=== PATIENT | male | born 1985 | race Caucasian/White ===

== ENCOUNTER 2021-03-06 14:17 | Outpatient (CLI) | payer BC, SELFPAY ==
--- NOTE | ~2021-03-06 | XR_ITS ---
XR lumbar spine 2-3V 03/06/2021 14:37 Indication: Low back pain. Patient fell off horse. Procedure: 3 views of the lumbar spine Comparison: No prior studies for comparison. Findings: There is grade 1 spondylolisthesis at L5-S1 secondary to bilateral spondylolysis. No acute fracture or traumatic malalignment. Vertebral body heights are maintained. No significant disc narrow ing. Sacral foramen are symmetric. Pedicles intact. Impression: 1: Grade 1 spondylolisthesis at L5-S1 secondary to spondylolysis. Reviewed, dictated and finalized at location A. Impression: 1: Grade 1 spondylolisthesis at L5-S1 secondary to spondylolysis.
== END 2021-03-06 14:18 | disposition home or self-care (01) ==
LOC: CHSIMG 14:19
PROVIDERS: PCP Nurse Practitioner Family; Visit Provider Nurse Practitioner Family
DX: M54.9 Dorsalgia, unspecified (principal)
CPT/HCPCS: 72100

== ENCOUNTER 2021-03-13 16:54 | Outpatient (RCR) | payer BC, SELFPAY ==
--- NOTE | 2021-03-13 18:05 | PTOPEVAL ---
Thank you for referring Eliot Spann to [facility].? The patient is scheduled to be seen for therapy? ____x/week for ___ weeks. Please review, sign, date and return this plan of care RON. I agree with and certify that the following plan of care is medically necessary. Referring Physician Date Admitting Provider: Attending Provider: Astrid Chaudhary NP Referring Provider: CONNIE Outpatient Evaluation Start: 03/13/21 17:01 Freq: Status: Active Protocol: Document 03/13/21 17:02 ACR (Rec: 03/13/21 18:05 ACR [id number]) Therapy Assessment Status Assessment Status Assessment Status Evaluation Evaluation Information Problem Diagnosis low back pain Onset 02/25/21 Subjective Information Patient states that he fell Query Text:As Reported By Patient/ off of the horse by the saddle Family coming off and he fell onto the back. Patient states that he has difficulty bending, lifting, and twisting. 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 Patient states that he walks slower than he used to, so if he walks or stands for a period of time his back is pretty sore. He also has difficulty with stairs. Patient states that the pain wakes him up at night, but if he takes a muscle relaxer, it is better. He states he is on light duty for work which means he is not lifting anything. Patient states that his goal for therapy is to decrease pain. 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
--- NOTE | 2021-04-10 08:00 | PCPTNOTE ---
Patient called on 04/04/21 and stated he is feeling great and would like to be discharged at this time. Please refer to recent treatment note for discharge status. Thank you, DEL PenaT
== END 2021-03-29 10:36 | disposition home or self-care (01) ==
LOC: CHSPT 16:54
PROVIDERS: PCP Nurse Practitioner Family; Visit Provider Nurse Practitioner Family
DX: M43.10 Spondylolisthesis, site unspecified (principal); M47.816 Spondylosis without myelopathy or radiculopathy, lumbar region
CPT/HCPCS: 97014; 97110; 97161; G0283

== ENCOUNTER 2025-03-31 18:22 | Emergency (ER) | payer BC, SELFPAY ==
--- NOTE | ~2025-03-31 | XR_ITS ---
XR ankle RT min 3V 03/31/2025 18:44 INDICATION: Right ankle pain PROCEDURE: 4 views right ankle COMPARISON: No prior studies for comparison. FINDINGS: Fracture, dislocation or subluxation is not identified. Ankle mortise intact. The soft tissues appear within normal limits. No foreign bodies are identified. IMPRESSION: 1: NO ACUTE BONE OR JOINT ABNORMALITY IDENTIFIED. Reviewed, dictated and finalized at location A.
[2025-03-31 18:23] VITALS: BP 127/91; PULSE 81; RESP 16; TEMP 36.7; O2SAT 95
--- OUTSIDE RECORDS SUMMARY | 2025-03-31 18:25 | XMS_ITS | Clinical Summary ---
Author Organization [facility] Healthcare Address [address] [place] [address] Care Team Providers Care Equity Analyst Name Role Phone Unavailable Primary Care Provider Unavailabl e Allergies No known active allergies Medications ibuprofen (ibuprofen) 200 mg tab/cap Take 200 mg by mouth every 6 (six) hours as needed for pain Active PARoxetine CR (PAXIL-CR) 12.5 mg 24 hr tabletIndicatio ns:Mild episode of recurrent major depressive disorder,Irrita bility and anger Take 1 tablet (12.5 mg total) by mouth every morning 90 tablet 9 Active Additional Information Patient not taking.Reported on 09/09/2019 Active Problems Problem Noted Date Diagnosed Date Irritability and anger 07/30/2019 Assessment & Plan (07/30/2019 5:14 PM [employer]): Encouraged psychotherapy; Patient is aware that he has benefits as his daughter has received counseling. He is currently opposed to counseling for himself d/t a negative experience as a child. New start on Paxil CR. Go to nearest ER if you believe you will be a harm to yourself or someone else. Anxiety associated with depression 07/30/2019 Assessment & Plan (09/09/2019 10:32 AM [employer]ER): Explained to patient that depression and anxiety go together. Discussed how benzodiazepines would only cover the problem. I do not think that medical marijuana would help his situation either, however, patient is adamant that medical marijuana is what he wants. I explained that this office does not do paperwork for medical marijuana. Pt states that he is done with this office but understood but would not be back. Assessment & Plan (07/30/2019 5:14 PM [employer]ER): Encouraged psychotherapy; Patient is aware that he has benefits as his daughter has received counseling. He is currently opposed to counseling for himself d/t a negative experience as a child. New start on Paxil CR. Go to nearest ER if you believe you will be a harm to yourself or someone else. Hypertriglyceridemia 11/25/2018 Chronic pain of right knee 11/12/2017 Class 2 obesity due to exces s calories without serious comorbidity with body mass index (BMI) of 35.0 to 35.9 in adult 11/12/2017 Assessment & Plan (07/30/2019 5:15 PM [employer]): Worsening. Encouraged patient to decrease weight, increase daily exercise, and modify diet. Assessment & Plan (06/04/2019 11:14 AM CDT): Healthy, low carbohydrate diet and exercise for 150min/week recommended Assessment & Plan (11/25/2018 4:48 PM CDT): Obesity is newly identified. Discussed the patient's BMI. The BMI is above average; BMI management plan is completed. General weight loss/lifestyle modification strategies discussed (elicit support from others; identify saboteurs; non-food rewards, etc). Assessment & Plan (11/12/2017 3:21 PM CDT): Obesity is newly identified. Discussed the patient's BMI. The BMI is above average; BMI management plan is completed. General weight loss/lifestyle modification strategies discussed (elicit support from others; identify saboteurs; non-food rewards, etc). Resolved Problems Problem Noted Date Diagnosed Date Resolved Date Irritant contact dermatitis due to other chemical products 11/25/2018 07/30/2019 Overview (11/25/2018): Left hand palm Immunizations Immunization Administration Dates Next Due Hep A, Ped Unspecified 04/14/2004 Influenza, Unspecified 05/29/2018(Deferred: Bria ent Refused) MMR 06/09/1992 Tdap 05/26/2017 Surgical History Surgery Date Site/Laterality Comments WISDOM TOOTH EXTRACTION bottom teeth VASECTOMY Medical History Medical History Date Comments HPV (human papilloma virus) infection 8 years ago Family History Medical History Relation Name Comments Diabetes type II Father Hypertension Father Diabetes Mother Hypertension Mother Relation Name Status Comments Father Alive Mother Alive Social History Tobacco Use Types Packs/Day Years Used Date Smoking Tobacco: Never Smokeless Tobacco: Never Alcohol Use Standard Drinks/Week Comments Yes 0 (1 standard drink = 0.6 oz pur e alcohol) PHQ-2 Answer Date Recorded PHQ-2 Score 3 07/30/2019 Personal Safety Answer Date Recorded Getting School Help Needed Not on file 10/26 Sex and Gender Information Value Date Recorded Sex Assigned at Not on file Legal Sex Male 9:01 AM [employer]IGH [employer] Gender Identity Not on file Sexual Orientation Not on file Obstetrics History Last Filed Vital Signs Vital Sign Reading Time Taken Comments Blood Pressure 107/69 09/09/2019 8:03 AM [employer] Pulse 71 09/09/2019 8:03 AM [employer] Temperature 36.6 C (97.9 F) 07/30/2019 3:13 PM [employer] Respiratory Rate 12 07/30/2019 3:13 PM [employer] Oxygen Saturation 98% 09/09/2019 8:03 AM [employer] Inhaled Oxygen Concentration - - Weight 110.6 kg (243 lb 14.4 oz) 09/09/2019 8:03 AM [employer] Height 176.5 cm (5' 9.5) 09/09/2019 8:03 AM [employer] Body Mass Index 35.5 09/09/2019 8:03 AM [employer] Plan of Treatment Not on file Insurance
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
[2025-03-31] MEDS: HYDROcodone/acetaminophen (*CRX) 5-325 MG TABLET 1 TAB PO (18:40)
--- NOTE | 2025-03-31 19:04 | PC.NURSE ---
report to margi patterson
== END 2025-03-31 19:15 | disposition home or self-care (01) ==
LOC: CHSED 19:01
PROVIDERS: Emergency Provider Internal Medicine Critical Care Medicine; PCP Family Medicine
DX: S93.401A Sprain of unspecified ligament of right ankle, initial encounter (principal); S96.911A Strain of unspecified muscle and tendon at ankle and foot level, right foot, initial encounter; S80.11XA Contusion of right lower leg, initial encounter; S80.211A Abrasion, right knee, initial encounter; S80.811A Abrasion, right lower leg, initial encounter; W23.0XXA Caught, crushed, jammed, or pinched between moving objects, initial encounter; Z87.891 Personal history of nicotine dependence
CPT/HCPCS: 73610; 99283; A9270